=== PATIENT | female | born 1960 | race African-American/Black ===

== ENCOUNTER 2017-01-16 18:25 | Emergency (ER) | payer MEDICAID ==
[~2017-01-16] VITALS: Ht 175.3 cm; Wt 69.0 kg
[2017-01-16 22:15] VITALS: BP 142/89
== END 2017-01-16 23:20 | disposition home or self-care (01) ==
LOC: ER 21:03
DX: J06.9 Acute upper respiratory infection, unspecified (principal); F17.210 Nicotine dependence, cigarettes, uncomplicated
CPT/HCPCS: 99283